=== PATIENT | female | born 1955 | race Caucasian/White ===

== ENCOUNTER 2022-01-07 06:37 | Day surgery (SDC) | payer MEDICAID ==
[2022-01-04 10:22] LABS: COVID AG,FIA SOURCE NASOPHARYNGEAL
[~2022-01-07] VITALS: Ht 154.9 cm; Wt 52.2 kg
[~2022-01-07 06:37] MED LIST: ATOR40TA71 PO; METF-446 PO; OMEP10 PO
[2022-01-07] MEDS ORDERED: SODIUM CHLORIDE 0.9% 1,000 ML ONE (07:00)
[2022-01-07] MEDS ORDERED: SODIUM CHLORIDE 0.9% 1,000 ML IV ONE (07:00)
[2022-01-07 07:51] LABS: GLUCOMETER DEV NAME(LOC) SDS.; GLUCOSE,POINT OF CARE 97 MG/DL (70-110)
[2022-01-07] MEDS ORDERED: PROPOFOL 1% 20 ML VIAL IVP ONE (12:00)
== END 2022-01-07 10:55 | disposition home or self-care (01) ==
LOC: SURGERY 06:37
PROVIDERS: ATTEND Student in an Organized Health Care Education/Training Program
DX: R13.10 Dysphagia, unspecified (principal); K29.50 Unspecified chronic gastritis without bleeding; K63.89 Other specified diseases of intestine; E11.9 Type 2 diabetes mellitus without complications; E78.5 Hyperlipidemia, unspecified; Z79.899 Other long term (current) drug therapy; Z90.49 Acquired absence of other specified parts of digestive tract; Z90.710 Acquired absence of both cervix and uterus; Z98.890 Other specified postprocedural states; Z82.49 Family history of ischemic heart disease and other diseases of the circulatory system; Z80.0 Family history of malignant neoplasm of digestive organs
CPT/HCPCS: 43239; 82962; 87426; C1769; C9803; J2704; J7030; 88305; 88312; 88313